=== PATIENT | female | born 2005 | race Caucasian/White ===

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

== ENCOUNTER → 2024-08-03 | Outpatient (CLI) | payer OTHER ==
[2024-08-03 11:24] LABS: Source, Urine Clean Catch
[2024-08-03 13:05] LABS: Appearance, Urine Cloudy (Clear); Bilirubin, Urine Neg (Neg); Blood, Urine 4+ (Neg); Glucose Qualitative, Urine Neg (Neg); Ketones, Urine Neg (Neg); Leukocyte Esterase, Urine 3+ (Neg); Nitrite, Urine Pos (Neg); Protein, Urine 3+ (Neg); Specific Gravity, Urine 1.015 (1.003-1.022); Urobilinogen, Urine NORM (Normal); pH, Urine 6.5 (5.0-8.0)
[2024-08-03 13:19] LABS: Bacteria Many /hpf; Color, Urine Pale Yellow (P-Yellow); Squamous Epithelial Cells Mod /hpf (Few); White Blood Cells, Urine 25-50 /hpf (0-5)
== END ==
LOC: LAB SHORT 11:19 → LAB 11:19
PROVIDERS: Advanced Practice Midwife
DX: N39.0 Urinary tract infection, site not specified (principal)
CPT/HCPCS: 81001; 87077; 87086; 87186

== ENCOUNTER → 2024-08-17 | Outpatient (CLI) | payer OTHER | END | disposition home or self-care (01) | LOC: LAB 18:46 → LAB SHORT 18:46 | DX: O09.93 Supervision of high risk pregnancy, unspecified, third trimester (principal); N39.0 Urinary tract infection, site not specified; Z3A.00 Weeks of gestation of pregnancy not specified | CPT/HCPCS: 87081; 87150 ==

== ENCOUNTER → 2024-08-22 | Outpatient (CLI) | payer OTHER ==
[2024-08-22 15:45] LABS: Candida Group, PCR NOT DETECTED (NOT DETECT); Candida glabrata-krusei, PCR NOT DETECTED (NOT DETECT)
[2024-08-22 15:46] LABS: Bacterial Vaginosis PCR Positive (NEGATIVE)
== END | disposition home or self-care (01) ==
LOC: LAB 12:04 → LAB SHORT 12:04
PROVIDERS: Advanced Practice Midwife
DX: N76.0 Acute vaginitis (principal)
CPT/HCPCS: 81515

== ENCOUNTER 2024-09-20 19:34 | Inpatient (IN) | payer OTHER ==
[~2024-09-20] VITALS: Ht 175.3 cm; Wt 84.0 kg
[2024-09-20 22:18] VITALS: BP 134/79
[2024-09-20] MEDS ORDERED: OXYTOCIN/RINGER'S LACTATE 500 ML IV SCH (22:40)
[2024-09-20] MEDS ORDERED: Misoprostol 25 MCG Tab VAG PRN (22:40)
[2024-09-20] MEDS ORDERED: Lactated Ringer's 1,000 ML IV PRN ×2 (22:45→23:50)
[2024-09-20] MEDS ORDERED: Tranexamic Acid 100 ML IV SCH (23:45)
[2024-09-20] MEDS ORDERED: Carboprost Tromethamine 250 MCG/ML 1ML Amp IM PRN (23:50)
[2024-09-20] MEDS ORDERED: Oxytocin 10 Unit / ML Vial IM PRN (23:50)
[2024-09-20] MEDS ORDERED: Acetaminophen 500 MG Tab PO PRN (23:50)
[2024-09-20] MEDS ORDERED: Ondansetron HCl 2 MG / ML 2ML Vial IV PRN (23:50)
[2024-09-20] MEDS ORDERED: Methylergonovine Maleate 0.2MG / ML 1ML Amp IM PRN (23:50)
[2024-09-20] MEDS ORDERED: OXYTOCIN/RINGER'S LACTATE 500 ML IV PRN (23:50)
[2024-09-20] MEDS ORDERED: Misoprostol 200 MCG Tab BC PRN (23:50)
[2024-09-20] MEDS ORDERED: Misoprostol 200 MCG Tab PR PRN (23:50)
[2024-09-20 23:52] LABS: BASOPHILS ABSOLUTE AUTO 0.03 K/mm3 (0.00-0.23); BASOPHILS PERCENT AUTO 0 % (0-2); EOSINOPHILS ABSOLUTE AUTO 0.12 K/mm3 (0.00-0.68); EOSINOPHILS PERCENT AUTO 1 % (0-6); Hematocrit 36.9 % (33.0-51.0); Hemoglobin 12.8 g/dL (11.5-16.0); IMMATURE GRAN ABSOLUTE AUTO 0.03 K/mm3 (0.00-0.10); IMMATURE GRAN PERCENT AUTO 0 % (0-1); LYMPHOCYTES ABSOLUTE AUTO 2.43 K/mm3 (0.84-5.20); LYMPHOCYTES PERCENT AUTO 27 % (21-46); MONOCYTES ABSOLUTE AUTO 1.17 K/mm3 (0.16-1.47); MONOCYTES PERCENT AUTO 13 % (4-13); Mean Corpuscular HGB 30.7 pg (26.0-34.0); Mean Corpuscular HGB Conc 34.7 g/dL (31.5-36.5); Mean Corpuscular Volume 89 fL (80-100); Mean Platelet Volume 9.9 fL (9.1-12.4); NEUTROPHILS ABSOLUTE AUTO 5.16 K/mm3 (1.96-9.15); NEUTROPHILS PERCENT AUTO 58 % (41-73); Platelet Count 220 K/mm3 (150-400); RDW Coefficient Variation 12.8 % (11.7-14.2); RDW Standard Deviation 41.6 fL (35.1-46.3); Red Blood Cell Count 4.17 M/mm3 (3.80-5.20); White Blood Cell Count 8.94 K/mm3 (4.00-11.30)
[2024-09-20] MEDS ORDERED: Calcium Carbonate 500 MG Tab Chew PO PRN (23:55)
[2024-09-20 23:58] VITALS: BP 119/77
[2024-09-21] VITALS (31 sets, daily range): BP systolic 94–141; BP diastolic 54–86
[2024-09-21] MEDS ORDERED: OXYTOCIN/RINGER'S LACTATE 500 ML IV SCH ×2 (05:35→16:55)
[2024-09-21] MEDS ORDERED: ePHEDrine Sulfate 50 MG/ML 1ML Injection XX PRN (11:25)
[2024-09-21] MEDS ORDERED: Lactated Ringer's 1,000 ML IV SCH ×3 (11:25→16:55)
[2024-09-21] MEDS ORDERED: FentaNYL 2mcg/ml-Bup 0.1% Epd 250 ML EPI PRN (11:25)
[2024-09-21] MEDS ORDERED: Methylergonovine Maleate 0.2MG / ML 1ML Amp IM PRN (16:55)
[2024-09-21] MEDS ORDERED: Ketorolac Tromethamine 30mg Vial IV PRN (16:55)
[2024-09-21] MEDS ORDERED: Measles/Mumps/Rubella Vaccine 0.5 ML Vial SC ONE (16:55)
[2024-09-21] MEDS ORDERED: Acetaminophen 325 MG TABLET PO PRN (17:00)
[2024-09-21] MEDS ORDERED: Misoprostol 200 MCG Tab BC PRN (17:00)
[2024-09-21] MEDS ORDERED: Benzocaine Topical Anesthetic Spray 60GM TOP PRN (17:00)
[2024-09-21] MEDS ORDERED: Witch Hazel/Glycerin PADS TOP PRN (17:00)
[2024-09-21] MEDS ORDERED: Ibuprofen 400 MG Tab PO PRN (17:00)
[2024-09-21] MEDS ORDERED: Lanolin Cream TOP PRN (17:00)
[2024-09-21] MEDS ORDERED: Docusate Sodium 100 MG Cap PO PRN (17:00)
[2024-09-22 01:29] VITALS: BP 123/76
[2024-09-22 04:24] VITALS: BP 134/66
--- NOTE | 2024-09-22 08:57 | NUR ---
PT DECLINES VITALS/ASSESSMENT AT THIS TIME DUE TO FAMILY VISITING, SHE WILL CALL WHEN READY. NO COMPLAINTS.
[2024-09-22] MEDS ORDERED: Prenatal Vit/FE Fumarate/FA 1 Tab PO SCH (09:00)
[2024-09-22 09:22] VITALS: BP 113/73
[2024-09-22 14:26] VITALS: BP 120/68
[2024-09-22 16:51] VITALS: BP 149/74
[2024-09-22 17:06] VITALS: BP 117/72
== END 2024-09-22 18:20 | disposition home or self-care (01) | DRG 807 ==
LOC: OBS 19:34 → BC 19:43 → OBS 19:52 → BC 19:53
PROVIDERS: ADMIT Advanced Practice Midwife
PROC: 3E0P7VZ Introduction of Hormone into Female Reproductive, Via Natural or Artificial Opening (ICD-10-PCS; 2024-09-20)
PROC: 4A1HXCZ Monitoring of Products of Conception, Cardiac Rate, External Approach (ICD-10-PCS; 2024-09-20)
PROC: 10E0XZZ Delivery of Products of Conception, External Approach (ICD-10-PCS; principal; 2024-09-21)
PROC: 10907ZC Drainage of Amniotic Fluid, Therapeutic from Products of Conception, Via Natural or Artificial Opening (ICD-10-PCS; 2024-09-21)
PROC: 4A1HXCZ Monitoring of Products of Conception, Cardiac Rate, External Approach (ICD-10-PCS; 2024-09-21)
DX: O48.0 Post-term pregnancy (principal); Z37.0 Single live birth; Z3A.41 41 weeks gestation of pregnancy; O70.0 First degree perineal laceration during delivery; Z88.2 Allergy status to sulfonamides; Z88.0 Allergy status to penicillin; H91.90 Unspecified hearing loss, unspecified ear; O99.892 Other specified diseases and conditions complicating childbirth
CPT/HCPCS: 36415; 51702; 85025; 86850; 86900; 86901; A9270; J1885; J2590; J7120